=== PATIENT | female | born 1985 | race African-American/Black ===

== ENCOUNTER 2019-11-12 01:36 | Observation (INO) | payer BC ==
[~2019-11-12] VITALS: Ht 157.5 cm; Wt 65.9 kg
--- NOTE | 2019-11-12 02:06 | PHYS DOC ---
Past Medical History Past Medical History: Asthma Past Surgical History: Smoking Status: Current Every Day Smoker Alcohol Use: None General Adult EDM: Chief Complaint: ANXIETY/PANIC ATTACK HPI: HPI: Patient is a 34 year old female presenting to the ED with a chief complaint of difficulty in swallowing. Patient said that she may have had a allergic reaction. Patient states that the symptoms are gone on for last 2 days. Patient states that she is tried some new foods in the last week. Patient does state that she had difficulty swallowing when she was a child. EMS state that patient had multiple bags with her unsure if patient is homeless. Patient was gestation when she called EMS. Review of Systems: Review of Systems: Constitutional: Denies fever or chills. [] Eyes: Denies change in visual acuity. [] HENT: Denies nasal congestion or sore throat. [] Respiratory: Denies cough or shortness of breath. [] Cardiovascular: Denies chest pain or edema. [] GI: Denies abdominal pain, nausea, vomiting, bloody stools or diarrhea. [] Neurologic: Denies headache, focal weakness or sensory changes. [] Heart Score: Risk Factors: Risk Factors: DM, Current or recent (<one month) smoker, HTN, HLP, family history of CAD, obesity. Risk Scores: Score 0 - 3: 2.5% MACE over next 6 weeks - Discharge Home Score 4 - 6: 20.3% MACE over next 6 weeks - Admit for Clinical Observation Score 7 - 10: 72.7% MACE over next 6 weeks - Early Invasive Strategies Current Medications: Current Medications Medications (Trade) Dose Ordered Sig/[facility] Start Time Stop Time Status Last Admin Dose Admin Diphenhydramine HCl (Benadryl) 25 mg 1X ONCE 11/12/19 02:00 11/12/19 02:01 UNV Methylprednisolone Sodium Succinate (SOLU-Medrol 125MG VIAL) 125 mg 1X ONCE 11/12/19 02:30 11/12/19 02:31 Allergies: Allergies: Allergies Coded Allergies Type Severity Reaction Last Updated Verified No Known Drug Allergies 11/12/19 No Physical Exam: PE: Constitutional: Well developed, well nourished, no acute distress, non-toxic appearance. [] HENT: Normocephalic, atraumatic Eyes: EOMI Neck: Normal range of motion, Supple Cardiovascular:Heart rate regular rhythm Lungs & Thorax: Bilateral breath sounds clear to auscultation [] Abdomen: Bowel sounds normal, soft, no tenderness Extremities: No tenderness, ROM intact Neurologic: Alert and oriented X 3 Current Patient Data: Vital Signs: Vital Signs Date Time Temp Pulse Resp B/P (MAP) Pulse Ox O2 Delivery O2 Flow Rate FiO2 11/12/19 01:36 99.0 90 16 145/85 (105) 100 Room Air 99.0 EKG: EKG: EKG interpretation: 1: 44 AM on 11/12/2019 HR: 90 Sinus rhythm Regular intervals Normal axis Nonspecific ST changes Radiology/Procedures: Radiology/Procedures: [] Impression: CXR Impression: The heart is not enlarged. Mediastinal and hilar contours are normal. No focal parenchymal airspace opacity. Nodular opacity opacities over the lower lungs bilaterally likely nipple shadow. No pleural effusion or pneumothorax. Course & Med Decision Making: Course & Med Decision Making Pertinent Labs and Imaging studies reviewed. (See chart for details) Ordered labs, chest x-ray, EKG, troponin EKG does not show any acute changes. Chest x-ray does not show any acute disease. Troponin is indeterminate 0.072. Patient was given aspirin in the ER. Potassium 3.2 and was replaced in the ER. Since patient is homeless, she is high risk for COVID. Cover testing done in the ER. Discussed results and plan of care with patient. Patient will be admitted for cardiac work-up. Breezy Disclaimer: Breezy Disclaimer: This electronic medical record was generated, in whole or in part, using a voice recognition dictation system. Departure Departure Impression: Primary Impression: Chest pain Disposition: ADMITTED INPATIENT Admitting Physician: BONNY Condition: STABLE Justicifation of Admission Dx: Justifications for Admission: Justification of Admission Dx: Yes UT: Acute NSTEMI INESSA GARCIA DO Nov 12, 2019 02:06
[2019-11-12 02:28] LABS: BASO # 0.1 x10^3/uL (0.0-0.2); BASO % 1 % (0-3); EOS # 0.5 x10^3/uL (0.0-0.7); EOS % 9 % (0-3); HEMATOCRIT 35.5 % (36.0-47.0); HEMOGLOBIN 12.3 g/dL (12.0-15.5); LYMPH # 2.5 x10^3/uL (1.0-4.8); LYMPH % 45 % (24-48); MEAN CORPUSCULAR HEMOGLOBIN 31 pg (25-35); MEAN CORPUSCULAR HGB CONC 35 g/dL (31-37); MEAN CORPUSCULAR VOLUME 88 fL (79-100); MONO # 0.5 x10^3/uL (0.0-1.1); MONO % 9 % (0-9); NEUT % 36 % (31-73); PLATELET COUNT 269 x10^3/uL (140-400); RED BLOOD COUNT 4.04 x10^6/uL (3.50-5.40); RED CELL DISTRIBUTION WIDTH 14.3 % (11.5-14.5); WHITE BLOOD COUNT 5.5 x10^3/uL (4.0-11.0)
[2019-11-12] MEDS ORDERED: methylPREDNISolone SOD SUCC PF 125 MG/2 ML VIAL. IV ONE (02:30)
[2019-11-12] MEDS ORDERED: IV NORMAL SALINE 1000ML BAG 1,000 ML IV ONE (02:30)
[2019-11-12] MEDS ORDERED: diphenhydrAMINE 50 MG/ML VIAL IVP ONE (02:30)
--- NOTE | 2019-11-12 02:32 | RAD ---
EXAM: AP View of the chest DATE: 11/12/2019 1:52 AM INDICATION: cough COMPARISON: No Prior FINDINGS: The heart is not enlarged. Mediastinal and hilar contours are normal. No focal parenchymal airspace opacity. Nodular opacity opacities over the lower lungs bilaterally likely nipple shadow. No pleural effusion or pneumothorax. IMPRESSION: 1. No radiographic evidence for acute cardiopulmonary process. 2. Nodular opacity opacities over the lower lungs bilaterally likely nipple shadow. Consider follow-up with nipple markers. Electronically signed by: Ernie Espinosa MD (11/12/2019 2:28 AM) ZURDO
[2019-11-12 02:36] LABS: CALCIUM 8.2 mg/dL (8.5-10.1); CREATININE 0.8 mg/dL (0.6-1.0); GFR 100.6; POTASSIUM 3.2 mmol/L (3.5-5.1)
[2019-11-12 02:41] LABS: ALBUMIN 3.5 g/dL (3.4-5.0); ALBUMIN/GLOBULIN RATIO 1.1 (1.0-1.7); TOTAL BILIRUBIN 0.9 mg/dL (0.2-1.0); TOTAL PROTEIN 6.7 g/dL (6.4-8.2)
[2019-11-12] MEDS ORDERED: ASPIRIN 325 MG TABLET PO ONE (03:30)
[2019-11-12] MEDS ORDERED: POTASSIUM CHLORIDE 20 MEQ TABLET.ER. PO ONE (03:30)
[2019-11-12 04:50] VITALS: BP 122/79
--- NOTE | 2019-11-12 06:34 | EKG ---
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
[2019-11-12 07:00] VITALS: BP 119/70
[2019-11-12] MEDS ORDERED: DOCUSATE SODIUM 100 MG CAPSULE. PO PRN (09:45)
[2019-11-12 11:00] VITALS: BP 116/68
--- NOTE | 2019-11-12 12:05 | PDOC2 ---
CARDIAC CONSULT DATE OF CONSULT Date of Consult DATE: 11/12/19 TIME: 11:41 REASON FOR CONSULT Reason for Consult: Elevated troponin REFERRING PHYSICIAN Referring Physician: Britt SOURCE Source: Chart review, Patient HISTORY OF PRESENT ILLNESS HISTORY OF PRESENT ILLNESS This is a 34 yo female admitted for complains of throat swelling and difficulty swallowing. Reports that she ate some food and may have had an allergic reaction to a sauce. She could not remember what sauce that was. After ingestion a litlle bit later she started having some difficulty swallowing, felt like her throat was swollen and tongue swollen as well with palpitations, skipping beats. No chest pressure but had some SOA. No abdominal pain or vomiting. She did have some swalling issues as a child. Presently she is better and on RA without any ditress. or pain. She came from [place] 3 days ago and was going to meet with her mother but her mother apparently was out of town and she is homeless residing with a friend currently. Denies any recreational drug use and no childhood heart disease. PAST MEDICAL HISTORY Pulmonary: Asthma GI: Other (?swallowing disorder) PAST SURGICAL HISTORY Past Surgical History: , Other (chest wound repair) SOCIAL HISTORY Smoke: <1 pack per day CURRENT MEDICATIONS CURRENT MEDICATIONS Current Medications Medications (Trade) Dose Ordered Sig/Kade Route PRN Reason Start Time Stop Time Status Last Admin Dose Admin Methylprednisolone Sodium Succinate (SOLU-Medrol 125MG VIAL) 125 mg 1X ONCE IV 11/12/19 02:30 11/12/19 02:31 DC 11/12/19 02:11 Diphenhydramine HCl (Benadryl) 25 mg 1X ONCE IVP 11/12/19 02:30 11/12/19 02:31 DC 11/12/19 02:11 Sodium Chloride 1,000 ml @ 1,000 mls/hr 1X ONCE IV 11/12/19 02:30 11/12/19 03:29 DC 11/12/19 02:15 Aspirin (Bryan Aspirin) 325 mg 1X ONCE PO 11/12/19 03:30 11/12/19 03:31 DC 11/12/19 03:37 Potassium Chloride (Klor-Con) 40 meq 1X ONCE PO 11/12/19 03:30 11/12/19 03:31 DC 11/12/19 03:37 ALLERGIES ALLERGIES: Coded Allergies: No Known Drug Allergies (Unverified , 11/12/19) ROS Review of System 14 point ROS evaluated with pertinent positives noted per HPI PHYSICAL EXAM General: Alert, Oriented X3, Cooperative, No acute distress HEENT: Atraumatic, Mucous membr. moist/pink, Other (still has throat soreness) Heart: Regular rate (SR no significant ectopies) Abdomen: Soft Skin: No breakdown Neuro: Other (mild dyphonia) Psych/Mental Status: Mental status NL, Mood NL MUSCULOSKELETAL: Full range of motion without pain VITALS/I&O VITALS/I&O: Vital Signs Date Time Temp Pulse Resp B/P (MAP) Pulse Ox O2 Delivery O2 Flow Rate FiO2 11/12/19 11:00 97.3 87 17 116/68 (84) 99 Room Air 97.3 I & O 11/11/19 11/11/19 11/12/19 15:00 23:00 07:00 Intake Total 1000 ml Balance 1000 ml LABS Lab: Laboratory Tests Test 11/12/19 02:05 11/12/19 09:30 White Blood Count 5.5 x10^3/uL (4.0-11.0) Red Blood Count 4.04 x10^6/uL (3.50-5.40) Hemoglobin 12.3 g/dL (12.0-15.5) Hematocrit 35.5 % (36.0-47.0) L Mean Corpuscular Volume 88 fL (79-100) Mean Corpuscular Hemoglobin 31 pg (25-35) Mean Corpuscular Hemoglobin Concent 35 g/dL (31-37) Red Cell Distribution Width 14.3 % (11.5-14.5) Platelet Count 269 x10^3/uL (140-400) Neutrophils (%) (Auto) 36 % (31-73) Lymphocytes (%) (Auto) 45 % (24-48) Monocytes (%) (Auto) 9 % (0-9) Eosinophils (%) (Auto) 9 % (0-3) H Basophils (%) (Auto) 1 % (0-3) Neutrophils # (Auto) 2.0 x10^3/uL (1.8-7.7) Lymphocytes # (Auto) 2.5 x10^3/uL (1.0-4.8) Monocytes # (Auto) 0.5 x10^3/uL (0.0-1.1) Eosinophils # (Auto) 0.5 x10^3/uL (0.0-0.7) Basophils # (Auto) 0.1 x10^3/uL (0.0-0.2) Sodium Level 139 mmol/L (136-145) Potassium Level 3.2 mmol/L (3.5-5.1) L Chloride Level 104 mmol/L (98-107) Carbon Dioxide Level 26 mmol/L (21-32) Anion Gap 9 (6-14) Blood Urea Nitrogen 11 mg/dL (7-20) Creatinine 0.8 mg/dL (0.6-1.0) Estimated GFR (Cockcroft-Gault) 100.6 BUN/Creatinine Ratio 14 (6-20) Glucose Level 88 mg/dL (70-99) Calcium Level 8.2 mg/dL (8.5-10.1) L Total Bilirubin 0.9 mg/dL (0.2-1.0) Aspartate Amino Transferase (AST) 19 U/L (15-37) Alanine Aminotransferase (ALT) 15 U/L (14-59) Alkaline Phosphatase 44 U/L (46-116) L Troponin I Quantitative 0.072 ng/mL (0.000-0.055) 0.083 ng/mL (0.000-0.055) Total Protein 6.7 g/dL (6.4-8.2) Albumin 3.5 g/dL (3.4-5.0) Albumin/Globulin Ratio 1.1 (1.0-1.7) Laboratory Tests 11/12/19 02:05 Laboratory Tests 11/12/19 02:05 ASSESSMENT/PLAN ASSESSMENT/PLAN 1. Suspecting food allergic reaction 2. Covid PUI 3. Mild Elevated troponin: peaked at 0.08. EKG NSR without acute changes. Demand mediated by allergic reaction. Doubt ACS 4. Hypokalemia: replaced 5. Homelessness 6. Tobaccoism Recommendations 1. Await covid and if negative then will at least do TTE. 2. antihistamines per PCP 3. SS consult 4. TSH, lipids, ESR, UDS 5. Smoking cessation ISAIAS PRICE APRN Nov 12, 2019 12:05
--- NOTE | 2019-11-12 12:22 | PDOC1 ---
History and Physical Date of Admission Date of Admission 11/12/2019 Identification/Chief Complaint Chief Complaint My tongue got swollen Source Source: Chart review, Patient History of Present Illness History of Present Illness Patient is a 34-year-old female who came to the emergency department with complaints of her tongue being swollen and inability to swallow and difficulty breathing. The patient apparently has history of allergic reactions to different food items, apparently the patient indulge in some [place] food with different sauces that may have prompted her symptoms. She has not been able to pinpoint the specific food groups that prompted her tongue to swell. At the time of my evaluation the patient does not present stridor no increased work of breathing no accessory muscle use there was no documentation of the beginning of her hospital stay either. The patient seems to be homeless at the present time she gives a myriad of complaints including some headache allergies postnasal dri p no cough sputum production except for some postnasal drip that prompts her to have clear sputum on and off. Patient denies chest pain no pressure-like no sensation of impending doom no nausea vomiting or diarrhea has been reported. The patient denies abdominal pain. As part of her emergency department evaluation she was tested for troponins despite the patient not complaining of chest discomfort and not having an angina type of symptoms history. Her troponin was mildly elevated and she has been admitted for further evaluation and treatment. Given that the patient is homeless also she has been tested for coronavirus Past Medical History Pulmonary: Asthma GI: Other (?swallowing disorder) Past Surgical History Past Surgical History: , Other (chest wound repair) Social History Smoke: <1 pack per day Current Problem List Problem List Problems Medical Problems: (1) Chest pain Status: Acute Current Medications Current Medications Current Medications Medications (Trade) Dose Ordered Sig/Kade Start Time Stop Time Status Last Admin Dose Admin Aspirin (Bryan Aspirin) 325 mg 1X ONCE 11/12/19 03:30 11/12/19 03:31 DC 11/12/19 03:37 325 MG Diphenhydramine HCl (Benadryl) 25 mg 1X ONCE 11/12/19 02:30 11/12/19 02:31 DC 11/12/19 02:11 25 MG Docusate Sodium (Colace) 100 mg PRN DAILY PRN 11/12/19 09:45 Methylprednisolone Sodium Succinate (SOLU-Medrol 125MG VIAL) 125 mg 1X ONCE 11/12/19 02:30 11/12/19 02:31 DC 11/12/19 02:11 125 MG Potassium Chloride (Klor-Con) 40 meq 1X ONCE 11/12/19 03:30 11/12/19 03:31 DC 11/12/19 03:37 40 MEQ Sodium Chloride 1,000 ml @ 1,000 mls/hr 1X ONCE 11/12/19 02:30 11/12/19 03:29 DC 11/12/19 02:15 1,000 MLS/HR Allergies Allergies Allergies Coded Allergies Type Severity Reaction Last Updated Verified No Known Drug Allergies 11/12/19 No ROS Review of System CONSTITUTIONAL: No fever or chills EYES: No recent changes SKIN: No rash or itching CARDIOVASCULAR: No chest pain, syncope, palpitations, or edema RESPIRATORY: No SOB or cough GASTROINTESTINAL: No nausea, vomiting or abdominal pain NEUROLOGICAL: No headaches or weakness ENDOCRINE: No cold or heat intolerance GENITOURINARY: No urgency or frequency of urination MUSCULOSKELETAL: No back pain or joint pain LYMPHATICS: No enlarged lymph nodes PSYCHIATRIC: No anxiety or depression Physical Exam Physical Exam GEN.: No apparent distress. Alert and oriented. HEENT: Head is normocephalic, atraumatic NECK: Supple. LUNGS: Clear to auscultation. HEART: RRR, S1, S2 present. Peripheral pulses intact ABDOMEN: Soft, nontender. Positive bowel sounds. EXTREMITIES: Without any cyanosis. NEUROLOGIC: Normal speech, normal tone PSYCHIATRIC: Normal affect, normal mood. SKIN: No ulcerations Vitals Vitals Vital Signs Date Time Temp Pulse Resp B/P (MAP) Pulse Ox O2 Delivery O2 Flow Rate FiO2 11/12/19 11:00 97.3 87 17 116/68 (84) 99 Room Air 97.3 Labs Labs Laboratory Tests Test 11/12/19 02:05 11/12/19 09:30 White Blood Count 5.5 x10^3/uL (4.0-11.0) Red Blood Count 4.04 x10^6/uL (3.50-5.40) Hemoglobin 12.3 g/dL (12.0-15.5) Hematocrit 35.5 % (36.0-47.0) Mean Corpuscular Volume 88 fL (79-100) Mean Corpuscular Hemoglobin 31 pg (25-35) Mean Corpuscular Hemoglobin Concent 35 g/dL (31-37) Red Cell Distribution Width 14.3 % (11.5-14.5) Platelet Count 269 x10^3/uL (140-400) Neutrophils (%) (Auto) 36 % (31-73) Lymphocytes (%) (Auto) 45 % (24-48) Monocytes (%) (Auto) 9 % (0-9) Eosinophils (%) (Auto) 9 % (0-3) Basophils (%) (Auto) 1 % (0-3) Neutrophils # (Auto) 2.0 x10^3/uL (1.8-7.7) Lymphocytes # (Auto) 2.5 x10^3/uL (1.0-4.8) Monocytes # (Auto) 0.5 x10^3/uL (0.0-1.1) Eosinophils # (Auto) 0.5 x10^3/uL (0.0-0.7) Basophils # (Auto) 0.1 x10^3/uL (0.0-0.2) Sodium Level 139 mmol/L (136-145) Potassium Level 3.2 mmol/L (3.5-5.1) Chloride Level 104 mmol/L (98-107) Carbon Dioxide Level 26 mmol/L (21-32) Anion Gap 9 (6-14) Blood Urea Nitrogen 11 mg/dL (7-20) Creatinine 0.8 mg/dL (0.6-1.0) Estimated GFR (Cockcroft-Gault) 100.6 BUN/Creatinine Ratio 14 (6-20) Glucose Level 88 mg/dL (70-99) Calcium Level 8.2 mg/dL (8.5-10.1) Total Bilirubin 0.9 mg/dL (0.2-1.0) Aspartate Amino Transf (AST/SGOT) 19 U/L (15-37) Alanine Aminotransferase (ALT/SGPT) 15 U/L (14-59) Alkaline Phosphatase 44 U/L (46-116) Troponin I Quantitative 0.072 ng/mL (0.000-0.055) 0.083 ng/mL (0.000-0.055) Total Protein 6.7 g/dL (6.4-8.2) Albumin 3.5 g/dL (3.4-5.0) Albumin/Globulin Ratio 1.1 (1.0-1.7) C-Reactive Protein, Quantitative 2.4 mg/L (0-3.3) Laboratory Tests Test 11/12/19 02:05 11/12/19 09:30 White Blood Count 5.5 x10^3/uL (4.0-11.0) Red Blood Count 4.04 x10^6/uL (3.50-5.40) Hemoglobin 12.3 g/dL (12.0-15.5) Hematocrit 35.5 % (36.0-47.0) Mean Corpuscular Volume 88 fL (79-100) Mean Corpuscular Hemoglobin 31 pg (25-35) Mean Corpuscular Hemoglobin Concent 35 g/dL (31-37) Red Cell Distribution Width 14.3 % (11.5-14.5) Platelet Count 269 x10^3/uL (140-400) Neutrophils (%) (Auto) 36 % (31-73) Lymphocytes (%) (Auto) 45 % (24-48) Monocytes (%) (Auto) 9 % (0-9) Eosinophils (%) (Auto) 9 % (0-3) Basophils (%) (Auto) 1 % (0-3) Neutrophils # (Auto) 2.0 x10^3/uL (1.8-7.7) Lymphocytes # (Auto) 2.5 x10^3/uL (1.0-4.8) Monocytes # (Auto) 0.5 x10^3/uL (0.0-1.1) Eosinophils # (Auto) 0.5 x10^3/uL (0.0-0.7) Basophils # (Auto) 0.1 x10^3/uL (0.0-0.2) Sodium Level 139 mmol/L (136-145) Potassium Level 3.2 mmol/L (3.5-5.1) Chloride Level 104 mmol/L (98-107) Carbon Dioxide Level 26 mmol/L (21-32) Anion Gap 9 (6-14) Blood Urea Nitrogen 11 mg/dL (7-20) Creatinine 0.8 mg/dL (0.6-1.0) Estimated GFR (Cockcroft-Gault) 100.6 BUN/Creatinine Ratio 14 (6-20) Glucose Level 88 mg/dL (70-99) Calcium Level 8.2 mg/dL (8.5-10.1) Total Bilirubin 0.9 mg/dL (0.2-1.0) Aspartate Amino Transf (AST/SGOT) 19 U/L (15-37) Alanine Aminotransferase (ALT/SGPT) 15 U/L (14-59) Alkaline Phosphatase 44 U/L (46-116) Troponin I Quantitative 0.072 ng/mL (0.000-0.055) 0.083 ng/mL (0.000-0.055) Total Protein 6.7 g/dL (6.4-8.2) Albumin 3.5 g/dL (3.4-5.0) Albumin/Globulin Ratio 1.1 (1.0-1.7) C-Reactive Protein, Quantitative 2.4 mg/L (0-3.3) VTE Prophylaxis Ordered VTE Prophylaxis Devices: Yes VTE Pharmacological Prophylaxi: No Assessment/Plan Assessment/Plan Elevated troponin Allergic reaction to food COVID-19 person under investigation Hypokalemia replaced History of tobacco abuse Homelessness Plan Cardiology has been consulted We will start patient on Singulair given the history of asthma and allergies imaging services director to help with discharge planning Tobacco smoking cessation counseling has been done less than 10 minutes DVT prophylaxis with SCDs Justicifation of Admission Dx: Justifications for Admission: Justification of Admission Dx: No JASWINDER HOLDEN MD Nov 12, 2019 12:22
[2019-11-12] MEDS ORDERED: diphenhydrAMINE HCL 25 MG CAPSULE PO PRN (12:30)
[2019-11-12 12:40] LABS: CHOLESTEROL/HDL RATIO 2.3; MAGNESIUM 1.9 mg/dL (1.8-2.4)
--- NOTE | 2019-11-12 13:39 | NUR ---
SS following for discharge planning. SS reviewed pt chart and discussed with pt RN. Pt is homeless and is currently on room air. Pt is self pay. Pt is COVID19 pending. SS will continue to follow for discharge planning.
[2019-11-12 13:57] LABS: BARBITURATES NEG (NEG); BENZODIAZEPINES NEG (NEG); CANNABINOIDS NEG (NEG); COCAINE NEG (NEG); METHADONE NEG (NEG); OPIATES NEG (NEG); PHENCYCLIDINE NEG (NEG)
[2019-11-12 14:08] LABS: AMPHETAMINE/METHAMPHETAMINE NEG (NEG)
[2019-11-12 14:51] VITALS: BP 113/62
[2019-11-12 19:10] VITALS: BP 118/62
[2019-11-12] MEDS ORDERED: MONTELUKAST SODIUM 10 MG TABLET. PO SCH (21:00)
--- NOTE | 2019-11-12 21:35 | NUR ---
PT C/O DIFFICULTY SWALLOWING. SAYS SHE FEELS THOUGH HER TONGUE IS SWOLLEN. BENADRYL GIVEN. PT MAINTAINING AIRWAY WITHOUT DIFFICULTY. NO OBVIOUS SWELLING SEEN UPON VISUALIZATION
[2019-11-12 23:00] VITALS: BP 112/57
[2019-11-13 07:00] VITALS: BP 115/62
[2019-11-13 11:00] VITALS: BP 122/64
--- NOTE | 2019-11-13 14:17 | PDOC ---
PROGRESS NOTES Subjective Subjective Patient seen and evaluated Objective Objective Vital Signs Date Time Temp Pulse Resp B/P (MAP) Pulse Ox O2 Delivery O2 Flow Rate FiO2 11/13/19 11:00 98.2 69 16 122/64 (83) 100 Room Air 98.2 Intake and Output 11/13/19 07:00 Intake Total 1370 ml Output Total 0 ml Balance 1370 ml Intake Oral 1370 ml Output Urine Total 0 ml # Voids 3 Assessment Assessment Problems Medical Problems: (1) Chest pain Status: Acute Possible allergic reaction. On antihistamines. Looks and feels better today. COVID testing negative. Minimally elevated troponin at 0.083 and 0.072. No acute EKG changes. Very low likelihood of coronary disease. Would increase activity today. Echocardiogram to check for LV function. Hypokalemia being replaced. Tobacco abuse. Discussed with the patient. Comment Review of Relevant I have reviewed the following items fazal (where applicable) has been applied. Labs Laboratory Tests Test 11/12/19 02:05 11/12/19 03:36 11/12/19 09:30 11/12/19 13:30 White Blood Count 5.5 x10^3/uL (4.0-11.0) Red Blood Count 4.04 x10^6/uL (3.50-5.40) Hemoglobin 12.3 g/dL (12.0-15.5) Hematocrit 35.5 % (36.0-47.0) Mean Corpuscular Volume 88 fL (79-100) Mean Corpuscular Hemoglobin 31 pg (25-35) Mean Corpuscular Hemoglobin Concent 35 g/dL (31-37) Red Cell Distribution Width 14.3 % (11.5-14.5) Platelet Count 269 x10^3/uL (140-400) Neutrophils (%) (Auto) 36 % (31-73) Lymphocytes (%) (Auto) 45 % (24-48) Monocytes (%) (Auto) 9 % (0-9) Eosinophils (%) (Auto) 9 % (0-3) Basophils (%) (Auto) 1 % (0-3) Neutrophils # (Auto) 2.0 x10^3/uL (1.8-7.7) Lymphocytes # (Auto) 2.5 x10^3/uL (1.0-4.8) Monocytes # (Auto) 0.5 x10^3/uL (0.0-1.1) Eosinophils # (Auto) 0.5 x10^3/uL (0.0-0.7) Basophils # (Auto) 0.1 x10^3/uL (0.0-0.2) Sodium Level 139 mmol/L (136-145) Potassium Level 3.2 mmol/L (3.5-5.1) Chloride Level 104 mmol/L (98-107) Carbon Dioxide Level 26 mmol/L (21-32) Anion Gap 9 (6-14) Blood Urea Nitrogen 11 mg/dL (7-20) Creatinine 0.8 mg/dL (0.6-1.0) Estimated GFR (Cockcroft-Gault) 100.6 BUN/Creatinine Ratio 14 (6-20) Glucose Level 88 mg/dL (70-99) Calcium Level 8.2 mg/dL (8.5-10.1) Total Bilirubin 0.9 mg/dL (0.2-1.0) Aspartate Amino Transf (AST/SGOT) 19 U/L (15-37) Alanine Aminotransferase (ALT/SGPT) 15 U/L (14-59) Alkaline Phosphatase 44 U/L (46-116) Troponin I Quantitative 0.072 ng/mL (0.000-0.055) 0.083 ng/mL (0.000-0.055) Total Protein 6.7 g/dL (6.4-8.2) Albumin 3.5 g/dL (3.4-5.0) Albumin/Globulin Ratio 1.1 (1.0-1.7) Coronavirus (COVID-19)(PCR) Not detected (NOT DETECT.) Magnesium Level 1.9 mg/dL (1.8-2.4) C-Reactive Protein, Quantitative 2.4 mg/L (0-3.3) Triglycerides Level 25 mg/dL (0-150) Cholesterol Level 179 mg/dL (0-200) LDL Cholesterol, Calculated 96 mg/dL (0-100) VLDL Cholesterol, Calculated 5 mg/dL (0-40) Non-HDL Cholesterol Calculated 101 mg/dL (0-129) HDL Cholesterol 78 mg/dL (40-60) Cholesterol/HDL Ratio 2.3 Thyroid Stimulating Hormone (TSH) 0.637 uIU/mL (0.358-3.74) Urine Opiates Screen Neg (NEG) Urine Methadone Screen Neg (NEG) Urine Barbiturates Neg (NEG) Urine Phencyclidine Screen Neg (NEG) Urine Amphetamine/Methamphetamine Neg (NEG) Urine Benzodiazepines Screen Neg (NEG) Urine Cocaine Screen Neg (NEG) Urine Cannabinoids Screen Neg (NEG) Urine Ethyl Alcohol Neg (NEG) Medications Current Medications Methylprednisolone Sodium Succinate (SOLU-Medrol 125MG VIAL) 125 mg 1X ONCE IV Last administered on 11/12/19at 02:11; Start 11/12/19 at 02:30; Stop 11/12/19 at 02:31; Status DC Diphenhydramine HCl (Benadryl) 25 mg 1X ONCE IVP Last administered on 11/12/19at 02:11; Start 11/12/19 at 02:30; Stop 11/12/19 at 02:31; Status DC Sodium Chloride 1,000 ml @ 1,000 mls/hr 1X ONCE IV Last administered on 11/12/19at 02:15; Start 11/12/19 at 02:30; Stop 11/12/19 at 03:29; Status DC Aspirin (Bryan Aspirin) 325 mg 1X ONCE PO Last administered on 11/12/19at 03:37; Start 11/12/19 at 03:30; Stop 11/12/19 at 03:31; Status DC Potassium Chloride (Klor-Con) 40 meq 1X ONCE PO Last administered on 11/12/19at 03:37; Start 11/12/19 at 03:30; Stop 11/12/19 at 03:31; Status DC Docusate Sodium (Colace) 100 mg PRN DAILY PRN PO HARD STOOLS; Start 11/12/19 at 09:45 Montelukast Sodium (Singulair) 10 mg QHS PO Last administered on 11/12/19at 20:04; Start 11/12/19 at 21:00 Diphenhydramine HCl (Benadryl) 25 mg PRN Q6HRS PRN PO ITCHING Last administered on 11/12/19at 20:48; Start 11/12/19 at 12:30 Vitals/I & O Vital Sign - Last 24 Hours 11/12/19 11/12/19 11/12/19 11/12/19 14:51 19:10 20:05 23:00 Temp 97.6 98.6 98.0 97.6 98.6 98.0 Pulse 80 83 79 Resp 17 17 18 B/P (MAP) 113/62 (79) 118/62 (80) 112/57 (75) Pulse Ox 100 O2 Delivery Room Air Room Air Room Air Room Air 11/13/19 11/13/19 11/13/19 07:00 08:00 11:00 Temp 98.2 98.2 98.2 98.2 Pulse 69 69 Resp 16 B/P (MAP) 115/62 (79) 122/64 (83) Pulse Ox 100 100 O2 Delivery Room Air Room Air Room Air Intake and Output 11/12/19 11/12/19 11/13/19 15:00 23:00 07:00 Intake Total 560 ml 560 ml 250 ml Output Total 0 ml 0 ml Balance 560 ml 560 ml 250 ml GILMER GOLDSMITH MD Nov 13, 2019 14:17
[2019-11-13] MEDS ORDERED: MONT10TA49 PO (15:13)
--- NOTE | 2019-11-13 15:18 | PDOC3 ---
Discharge Summary Visit Information Date of Admission: Nov 12, 2019 Date of Discharge: Nov 13, 2019 Admitting Diagnosis Comment: Elevated troponin Allergic reaction to food COVID-19 person under investigation Hypokalemia replaced History of tobacco abuse Homelessness Final Diagnosis Elevated troponin no clinical significance, patient tested negative for covid 19, cardiology with very low suspicion for CAD. Allergic reaction to food Hypokalemia replaced History of tobacco abuse Homelessness Brief Hospital Course Allergies Allergies Coded Allergies Type Severity Reaction Last Updated Verified No Known Drug Allergies 11/12/19 No Vital Signs Vital Signs Date Time Temp Pulse Resp B/P (MAP) Pulse Ox O2 Delivery O2 Flow Rate FiO2 11/13/19 11:00 98.2 69 16 122/64 (83) 100 Room Air 98.2 Lab Results Laboratory Tests Test 11/12/19 02:05 11/12/19 03:36 11/12/19 09:30 11/12/19 13:30 White Blood Count 5.5 x10^3/uL (4.0-11.0) Red Blood Count 4.04 x10^6/uL (3.50-5.40) Hemoglobin 12.3 g/dL (12.0-15.5) Hematocrit 35.5 % (36.0-47.0) Mean Corpuscular Volume 88 fL (79-100) Mean Corpuscular Hemoglobin 31 pg (25-35) Mean Corpuscular Hemoglobin Concent 35 g/dL (31-37) Red Cell Distribution Width 14.3 % (11.5-14.5) Platelet Count 269 x10^3/uL (140-400) Neutrophils (%) (Auto) 36 % (31-73) Lymphocytes (%) (Auto) 45 % (24-48) Monocytes (%) (Auto) 9 % (0-9) Eosinophils (%) (Auto) 9 % (0-3) Basophils (%) (Auto) 1 % (0-3) Neutrophils # (Auto) 2.0 x10^3/uL (1.8-7.7) Lymphocytes # (Auto) 2.5 x10^3/uL (1.0-4.8) Monocytes # (Auto) 0.5 x10^3/uL (0.0-1.1) Eosinophils # (Auto) 0.5 x10^3/uL (0.0-0.7) Basophils # (Auto) 0.1 x10^3/uL (0.0-0.2) Sodium Level 139 mmol/L (136-145) Potassium Level 3.2 mmol/L (3.5-5.1) Chloride Level 104 mmol/L (98-107) Carbon Dioxide Level 26 mmol/L (21-32) Anion Gap 9 (6-14) Blood Urea Nitrogen 11 mg/dL (7-20) Creatinine 0.8 mg/dL (0.6-1.0) Estimated GFR (Cockcroft-Gault) 100.6 BUN/Creatinine Ratio 14 (6-20) Glucose Level 88 mg/dL (70-99) Calcium Level 8.2 mg/dL (8.5-10.1) Total Bilirubin 0.9 mg/dL (0.2-1.0) Aspartate Amino Transf (AST/SGOT) 19 U/L (15-37) Alanine Aminotransferase (ALT/SGPT) 15 U/L (14-59) Alkaline Phosphatase 44 U/L (46-116) Troponin I Quantitative 0.072 ng/mL (0.000-0.055) 0.083 ng/mL (0.000-0.055) Total Protein 6.7 g/dL (6.4-8.2) Albumin 3.5 g/dL (3.4-5.0) Albumin/Globulin Ratio 1.1 (1.0-1.7) Coronavirus (COVID-19)(PCR) Not detected (NOT DETECT.) Magnesium Level 1.9 mg/dL (1.8-2.4) C-Reactive Protein, Quantitative 2.4 mg/L (0-3.3) Triglycerides Level 25 mg/dL (0-150) Cholesterol Level 179 mg/dL (0-200) LDL Cholesterol, Calculated 96 mg/dL (0-100) VLDL Cholesterol, Calculated 5 mg/dL (0-40) Non-HDL Cholesterol Calculated 101 mg/dL (0-129) HDL Cholesterol 78 mg/dL (40-60) Cholesterol/HDL Ratio 2.3 Thyroid Stimulating Hormone (TSH) 0.637 uIU/mL (0.358-3.74) Urine Opiates Screen Neg (NEG) Urine Methadone Screen Neg (NEG) Urine Barbiturates Neg (NEG) Urine Phencyclidine Screen Neg (NEG) Urine Amphetamine/Methamphetamine Neg (NEG) Urine Benzodiazepines Screen Neg (NEG) Urine Cocaine Screen Neg (NEG) Urine Cannabinoids Screen Neg (NEG) Urine Ethyl Alcohol Neg (NEG) Brief Hospital Course Ms. Gabriel is a 34 old female with no significant past medical history. The patient was admitted since she was tested for troponin due to complain of neck discomfort due to her allergic reaction. The patient was admitted to the hospital to trend troponin which was decreased on the second no check. The patient denied any chest pain no angina type of symptoms nor equivalents. The patient was seen in consultation by cardiology who also did not feel that this is cardiac in nature. COVID test was negative. As per nursing staff rounding community center worker verbally said the patient was okay to be discharged home. I have encouraged her to establish care with a primary care physician in the community since she just recently moved from [place]. Signs and symptoms of concern were discussed prior to dismissal I have given her a prescription for Singulair since she seems to have allergies and I have encouraged her to abstain from processed foods or sauces that probably we are the culprit in this location for her reaction given the amount of artificial coloring that these package sauces contain. Gen.: well-developed well-nourished in no apparent distress Head: Normal shape atraumatic Eyes: Pupils equal reactive to light and accommodation, normal conjunctivae and lids Ears: Normal shape Nose: Normal shape no trauma Mouth: No exudates of the back of throat no thrush no lesions Neck: Supple no JVD no carotid bruit or lymphadenopathy no thyromegaly Chest: Lungs clear to auscultation with good inspiratory effort no crackles rales or rhonchi Cardiovascular: S1-S2 regular rhythm no murmurs gallops or rubs Abdomen: Bowel sounds present soft nontender no hepatosplenomegaly appreciated sign Extremities: No clubbing no cyanosis no edema peripheral pulses palpated bilaterally Neurological: Alert awake oriented in person time place and situation, cranial nerves II through XII intact, no motor or sensory deficits appreciated Psych: Appropriate mood, cooperative Assessment Assessment [address] [place] [address] IMAGING REPORT Signed PATIENT: CARLENE GABRIELACCOUNT: [id number] : 1985 LOCATION: ER AGE: 34 SEX: F EXAM STATUS: REG ER ORD. PHYSICIAN: INESSA GARCIA DO REASON: cough PROCEDURE: CHEST AP ONLY EXAM: AP View of the chest DATE: 11/12/2019 1:52 AM INDICATION: cough COMPARISON: No Prior FINDINGS: The heart is not enlarged. Mediastinal and hilar contours are normal. No focal parenchymal airspace opacity. Nodular opacity opacities over the lower lungs bilaterally likely nipple shadow. No pleural effusion or pneumothorax. IMPRESSION: 1. No radiographic evidence for acute cardiopulmonary process. 2. Nodular opacity opacities over the lower lungs bilaterally likely nipple shadow. Consider follow-up with nipple markers. Electronically signed by: Ernie Espinosa MD (11/12/2019 2:28 AM) [facility] Discharge Information Condition at Discharge: Improved Follow Up: Weeks Disposition/Orders: D/C to Home Scheduled Montelukast Sodium (Montelukast Sodium Tablet ) 10 Mg Tablet, 10 MG PO QHS for allergies for 30 Days, #30 Prescribed by: JASWINDER HOLDEN MD on 11/13/19 1513 Justicifation of Admission Dx: Justifications for Admission: Justification of Admission Dx: No JASWINDER HOLDEN MD Nov 13, 2019 15:18
--- NOTE | 2019-11-13 18:11 | NUR ---
Discharge Note: DENNIS GABRIEL [facility] Discharge instructions and discharge home medications reviewed with Patient and a copy given. All questions have been answered and understanding verbalized. The following instructions and handouts were given: angioedema Discontinued lines and drains: IV catheter removed intact. Patient discharged to Home with self care via z-trip
== END 2019-11-13 18:14 | disposition home or self-care (01) ==
LOC: ER 01:36 → 6 SOUTH 02:55
PROVIDERS: ADMIT Internal Medicine; ATTEND Internal Medicine
DX: R07.9 Chest pain, unspecified (principal); Z20.828 Contact with and (suspected) exposure to other viral communicable diseases; T78.1XXA Other adverse food reactions, not elsewhere classified, initial encounter; E87.6 Hypokalemia; F17.210 Nicotine dependence, cigarettes, uncomplicated; J45.909 Unspecified asthma, uncomplicated; Z59.0 Homelessness; Z79.899 Other long term (current) drug therapy
CPT/HCPCS: 36415; 71045; 80053; 80061; 80307; 83735; 84443; 84484; 85025; 86140; 93005; 96374; 96375; 99285; G0378; G0379; J1200; J2930; J7030; U0003; Q0163

== ENCOUNTER 2020-04-21 02:09 | Emergency (ER) | payer BC ==
[~2020-04-21] VITALS: Ht 157.5 cm; Wt 55.0 kg
[~2020-04-21 02:09] MED LIST: MONT10TA49 PO
--- NOTE | 2020-04-21 02:21 | PHYS DOC ---
Past Medical History Past Medical History: Asthma Past Surgical History: Smoking Status: Current Every Day Smoker Alcohol Use: None General Adult EDM: Chief Complaint: ANXIETY/PANIC ATTACK HPI: HPI: History obtained from patient. Patient is a 32-year-old female with recent history of Covid diagnosis who presents with chief complaint of difficulty swallowing or shortness of breath. Patient states 3 hours ago while eating food she began having difficulty swallowing. She states it felt as though her throat was tightening. She denies any rash or vomiting. She states that shortly after shortness of breath began. States it felt as though she was hyperventilating. She denies any chest pain or syncope. Denies any feelings of irregular or rapid heartbeat. Notes she was diagnosed with Covid 3 days ago [facility]. States she is currently residing at a [facility] for quarantine Covid individuals. Did try ibuprofen prior to arrival with minimal relief. Denies any history of anaphylaxis. Denies wheezing. Denies pain with swallowing. Denies any history of anxiety. States that her symptoms have gradually improved since they began. States she would have tried staying home however she was unable to fall asleep. Denies changes to her voice. Denies difficulty swallowing her secretions. No other complaints. Review of Systems: Review of Systems: Constitutional: Denies fever or chills. [] Eyes: Denies change in visual acuity. [] HENT: Positive for dysphagia Respiratory: De positive shortness of breath Cardiovascular: Denies chest pain or edema. [] GI: Denies abdominal pain, nausea, vomiting, bloody stools or diarrhea. [] : Denies dysuria. [] Musculoskeletal: Denies back pain or joint pain. [] Integument: Denies rash. [] Neurologic: Denies headache, focal weakness or sensory changes. [] Endocrine: Denies polyuria or polydipsia. [] Lymphatic: Denies swollen glands. [] Psychiatric: Denies depression or anxiety. [] Heart Score: Risk Factors: Risk Factors: DM, Current or recent (<one month) smoker, HTN, HLP, family history of CAD, obesity. Risk Scores: Score 0 - 3: 2.5% MACE over next 6 weeks - Discharge Home Score 4 - 6: 20.3% MACE over next 6 weeks - Admit for Clinical Observation Score 7 - 10: 72.7% MACE over next 6 weeks - Early Invasive Strategies Allergies: Allergies: Allergies Coded Allergies Type Severity Reaction Last Updated Verified No Known Drug Allergies 11/12/19 No Physical Exam: PE: Constitutional: Well developed, well nourished, no acute distress, non-toxic appearance. [] HENT: Normocephalic, atraumatic, bilateral external ears normal, oropharynx moist, no oral exudates, nose normal. Normal phonation. No trismus. [] Eyes: PERRLA, EOMI, conjunctiva normal, no discharge. [] Neck: Normal range of motion, no tenderness, supple, no stridor. [] Cardiovascular:Heart rate regular rhythm, no murmur [] Lungs & Thorax: Bilateral breath sounds clear to auscultation [] Abdomen: soft, no tenderness, no masses, no pulsatile masses. [] Skin: Warm, dry, no erythema, no rash. [] Back: No tenderness, no CVA tenderness. [] Extremities: No tenderness, no cyanosis, no clubbing, ROM intact, no edema. [] Neurologic: Alert and oriented X 3, normal motor function, normal sensory function, no focal deficits noted. [] Psychologic: Affect normal, judgement normal, mood normal. [] Current Patient Data: Vital Signs: Current Medications Medications (Trade) Dose Ordered Sig/Kade Route PRN Reason Start Time Stop Time Status Last Admin Dose Admin Famotidine (Pepcid) 20 mg 1X ONCE PO 04/21/20 02:30 04/21/20 02:31 DC 04/21/20 02:46 Lorazepam (Ativan) 1 mg 1X ONCE PO 04/21/20 02:30 04/21/20 02:31 DC 04/21/20 02:46 EKG: EKG: EKG consistent with normal sinus rhythm. Ventricular rate of 61 bpm. [place] normal. Intervals normal. No acute ischemic changes noted. [] Radiology/Procedures: Radiology/Procedures: [facility] [address] [place] [address] IMAGING REPORT Signed PATIENT: CARLENE GABRIELACCOUNT: [id number] : 1985 LOCATION: ER AGE: 35 SEX: F EXAM STATUS: REG ER ORD. PHYSICIAN: EUNICE COATES DO REASON: SHORT OF AIR, COVID + PROCEDURE: CHEST AP ONLY Study: CR CHEST AP ONLY Indication: Shortness of air. Covid positive Comparison: 11/12/2019 Findings: Nipple shadow noted on the right. Unremarkable cardiomediastinal silhouette and misael. No localized airspace infiltrate, pleural effusion or pneumothorax. Impression: No acute radiographic abnormality of the chest. Electronically signed by: HELGA MIDDLETON MD (04/21/2020 3:08 AM) [id number] DICTATED and SIGNED BY: HELGA MIDDLETON MD DATE: 04/21/20 0308 [] Course & Med Decision Making: Course & Med Decision Making Pertinent Labs and Imaging studies reviewed. (See chart for details) [] Patient is a overall clinically nontoxic and well-appearing 35-year-old female who presents with chief complaint of shortness of breath, loss of smell, sore throat. Initial vital signs unremarkable. Including normal oxygen level on room air. No signs of respiratory distress. Lungs are clear to auscultation bilaterally. Patient shows no signs or symptoms concerning for deep space infection. Normal phonation. No trismus. No drooling noted. Afebrile. Chest x-ray shows no focal consolidation. EKG unremarkable. I do feel laboratory Naus this will yield further diagnostic information. Patient is requesting medication to help with her nasal congestion. She is also specifically requesting an inhaler to help with some breathing. Overall I do feel this is reasonable. She will be discharged home with Flonase, Mucinex, and albuterol inhaler. She was instructed to continue to quarantine at home. Return precautions discussed and understood. Patient is agreeable to this plan states she is feeling much better. Stable for discharge. COVID-19 CRITERIA: The patient was evaluated during the global COVID-19 pandemic, and that diagnosis was suspected/considered upon their initial presentation. Their evaluation, treatment and testing was consistent with current guidelines for patients who present with complaints or symptoms that may be related to COVID-19. Dragon Disclaimer: Dragon Disclaimer: This electronic medical record was generated, in whole or in part, using a voice recognition dictation system. Departure Departure Impression: Primary Impression: COVID-19 Additional Impressions: Sore throat Nasal congestion Disposition: 01 DC HOME SELF CARE/HOMELESS Condition: STABLE Referrals: NO PCP (PCP) Additional Instructions: You have been tested for or diagnosed with COVID-19. It is an infection caused by a new type of coronavirus. COVID-19 will cause cold-like or mild flu symptoms in most. It can cause more severe symptoms like problems breathing in some. There is no treatment for COVID-19. The body will clear the infection over time. Self-care will help to ease discomfort. Steps to Take: Self-Care Rest as needed. Healthy habits may help you feel better. Steps include: Choose healthy foods including fruits and vegetables. Drink water throughout the day. Get plenty of sleep each night. If you smoke, try to quit. It may ease breathing. Avoid alcohol. Keep Others Healthy The virus can spread to others. Droplets are released every time you sneeze or cough. The droplets can get into the mouth, nose, or eyes of people near you and lead to infection. To lower the chances of spreading COVID-19 to others: Stay at home until your doctor has said it is safe to leave. If you tested positive this will mean staying isolated until both of the following are true: At least 7 days have passed since the start of illness. You are free of fever for at least 72 hours without the use of medicine. During this time: - Avoid public areas, events, or transportation. Do not return to work or school until your doctor has said it is safe to do so. - Call ahead if you need to go to a medical center. Let them know you may have COVID-19. It will help them guide you where to go. They may also ask you to wear a facemask when you come to the office. - If you call for emergency medical services, let them know you may have COVID- 19. While at home: - Try to avoid close contact with others. Stay about 6 feet away. - If possible, spend most of your time in a separate room from others. - Use a face mask if you will be in close contact with others such as sharing a room or vehicle. - Have someone wipe down common surfaces in the home. Use household jukebox coin collector every day on areas like doorknobs, counters, or sinks. - Cough or sneeze into a tissue. Throw the tissue away right after use. If a tissue is not available, cough or sneeze into your elbow. - Wash your hands often. Wash them after sneezing or coughing. Use soap and water and wash for at least 20 seconds. Alcohol based hand core cleaner can be used if soap and water is not available. - Do not prepare food for others. Avoid sharing personal items like forks, spoons, or toothbrushes. - Avoid close contact with pets while you are sick. There is no evidence of the virus passing to pets. This is a safety step until more is known about this virus. Isolation can be frustrating. Social interaction can help. Keep in touch with friends and family through phone and tech options. You can still interact with others in your home, just keep a safe distance of about 6 feet. Follow-up: Your doctors office will check in with you to see if there are any changes in your health. You may be asked to keep track of symptoms to share with them. They will also let you know when you are clear to be in public again. Problems to Look Out For: Contact your doctor if your recovery is not going as you expect. Get emergency care if you have problems such as: - Trouble breathing - Nonstop chest pain or pressure - Changes in awareness, confusion, or problems waking - Lips or face have bluish color - Worsening of symptoms If you think you have an emergency, call for emergency medical services right away. [facility] Albuterol Sulfate (Proair Hfa) 8.5 Gm Hfa.aer.ad 2 PUFF IH PRN Q4-6HRS PRN for wheezing for 21 Days, #1 INHALER 0 Refills Prov: EUNICE COATES DO 04/21/20 Guaifenesin (MUCINEX) 600 Mg Tablet.er 1 TAB PO BID for cough for 5 Days, #10 TAB 0 Refills Prov: EUNICE COATES DO 04/21/20 Fluticasone Propionate (Flonase Allergy Relief) 9.[address]susp 2 SPRAYS NS DAILY for 14 Days, #1 BOTTLE Prov: EUNICE COATES DO 04/21/20 EUNICE COATES DO Apr 21, 2020 02:21
[2020-04-21] MEDS ORDERED: FAMOTIDINE 20 MG TABLET. PO ONE (02:30)
[2020-04-21 02:47] VITALS: BP 148/94
--- NOTE | 2020-04-21 03:11 | RAD ---
Study: CR CHEST AP ONLY Indication: Shortness of air. Covid positive Comparison: 11/12/2019 Findings: Nipple shadow noted on the right. Unremarkable cardiomediastinal silhouette and misael. No localized airspace infiltrate, pleural effusion or pneumothorax. Impression: No acute radiographic abnormality of the chest. Electronically signed by: HELGA MIDDLETON MD (04/21/2020 3:08 AM) [id number]
[2020-04-21] MEDS ORDERED: FLUT9.9S NS (03:32)
[2020-04-21] MEDS ORDERED: ALBU2.5V8 IH (03:32)
[2020-04-21] MEDS ORDERED: GUAI600T47 PO (03:32)
== END 2020-04-21 03:55 | disposition home or self-care (01) ==
LOC: ER 02:09
DX: U07.1 COVID-19 (principal); J02.9 Acute pharyngitis, unspecified; R09.81 Nasal congestion; J45.909 Unspecified asthma, uncomplicated; F17.200 Nicotine dependence, unspecified, uncomplicated
CPT/HCPCS: 71045; 99283